=== PATIENT | male | born 1980 | race Caucasian/White ===

== ENCOUNTER 2016-11-23 13:03 | Inpatient (IN) | payer OTHER ==
[~2016-11-23] VITALS: Ht 185.4 cm; Wt 73.6 kg
[2016-11-23 15:02] LABS: HEMATOCRIT 41.5 % (38.0-50.0); MCH 30.4 PG (29.0-34.0); MCHC 35.9 G/DL (30.0-36.0); MCV 84.7 FL (86-99); MEAN PLAT.VOLUME 8.8 uM^3 (9.0-12.4); PLATELET COUNT 217 K/uL (156-360); RBC DIS.WIDTH-CV 11.8 % (11.8-14.6); RBC DIS.WIDTH-SD 35.8 % (39-53); WHITE BLOOD COUNT 22.9 K/uL (4.1-10.2)
[2016-11-23 15:10] LABS: CHLORIDE 91 mEq/L (99-109); POTASSIUM 4.3 mEq/L (3.7-5.4); SODIUM 131 mEq/L (136-147)
[2016-11-23 15:12] LABS: GLUCOSE 164 mg/dL (70-99)
[2016-11-23 15:13] LABS: ANION GAP 16 MEQ/L (2-14)
[2016-11-23 15:14] LABS: TOTAL BILIRUBIN 1.5 mg/dL (0.0-1.0)
[2016-11-23 15:16] LABS: ALKALINE PHOSPHATASE 63 IU/L (3-129); GFR ESTIMATE (CALCULATED) > 59 mL/min/
[2016-11-23 15:17] LABS: UREA NITROGEN (BUN) 28 mg/dL (9-23)
[2016-11-23 15:48] LABS: LIPASE 454 U/L (1.0-51.0)
[2016-11-23 17:03] LABS: ADD MIUA? YES; BILIRUBIN NEGATIVE; BLOOD SMALL; COLOR YELLOW ((YELLOW)); GLUCOSE (STRIP) 50; KETONES NEGATIVE; LEUKOCYTES NEGATIVE; NITRITE NEGATIVE; PROTEIN (STRIP) 100; SPECIFIC GRAVITY 1.038 (1.000-1.030); UROBILINOGEN 0.2 MG/DL (0.2-1.0)
[2016-11-23 17:06] LABS: BACTERIA NONE SEEN /HPF; EPITHELIAL CELLS NONE SEEN /HPF; MUCUS NONE SEEN /LPF; RED BLOOD CELLS 0-5 /HPF (0-5); UCUL ADDED? NO; WHITE BLOOD CELLS 0-5 /HPF (0-5)
[2016-11-23] MEDS ORDERED: BENADRYL50 MG PO (20:55)
[2016-11-23 22:20] VITALS: BP 160/92
[2016-11-24 03:47] VITALS: BP 135/87
[2016-11-24 06:19] LABS: EOSINOPHIL (%) 0.1 % (0-5); HEMATOCRIT 33.8 % (38.0-50.0); IMMATURE GRANULOCYTE (%) 0.6 % (0.0-0.7); IMMATURE GRANULOCYTE COUNT 0.1 K/uL; INSTRUMENT ABS NEUTROPHIL CT 13.2 K/uL; LYMPHOCYTE COUNT 0.6 K/uL (1.0-2.8); MCH 29.8 PG (29.0-34.0); MCHC 33.7 G/DL (30.0-36.0); MCV 88.5 FL (86-99); MONOCYTE (%) 14.7 % (3-12); MONOCYTE COUNT 2.4 K/uL (0-0.8); NEUTROPHIL (%) 81.1 % (45-76); NEUTROPHIL COUNT 13.2 K/uL (1.8-6.4); PLATELET COUNT 189 K/uL (156-360); RBC DIS.WIDTH-CV 12.1 % (11.8-14.6); RBC DIS.WIDTH-SD 38.7 % (39-53); RED BLOOD COUNT 3.82 M/uL (4.00-5.50); WHITE BLOOD COUNT 16.3 K/uL (4.1-10.2)
[2016-11-24 06:34] LABS: ALKALINE PHOSPHATASE 42 IU/L (3-129); ANION GAP 7 MEQ/L (2-14); CHLORIDE 103 MEQ/L (99-109); POTASSIUM 4.1 MEQ/L (3.7-5.4); SAMPLE HEMOLYSIS CHECK 0; SAMPLE ICTERIC CHECK 0; SAMPLE LIPEMIA CHECK 0; SODIUM 135 MEQ/L (136-147); UREA NITROGEN (BUN) 13 mg/dL (9-23)
[2016-11-24 06:54] LABS: GFR ESTIMATE (CALCULATED) > 59 mL/min/; GLUCOSE 104 mg/dL (70-99)
[2016-11-24 07:43] VITALS: BP 150/92
[2016-11-24 11:30] VITALS: BP 145/97
[2016-11-24 15:45] VITALS: BP 147/89
[2016-11-24 19:37] VITALS: BP 141/82
[2016-11-24 23:42] VITALS: BP 151/77
[2016-11-25 04:50] VITALS: BP 132/69
[2016-11-25 07:32] VITALS: BP 130/82
[2016-11-25 11:45] VITALS: BP 148/88
[2016-11-25 15:25] VITALS: BP 149/76
[2016-11-25 19:40] VITALS: BP 138/80
[2016-11-25 23:48] VITALS: BP 148/80
[2016-11-26 08:04] VITALS: BP 144/80
[2016-11-26 11:23] VITALS: BP 153/92
[2016-11-26 12:39] LABS: HEMATOCRIT 32.5 % (38.0-50.0); MCH 29.9 PG (29.0-34.0); MCHC 34.2 G/DL (30.0-36.0); MCV 87.6 FL (86-99); MEAN PLAT.VOLUME 8.9 uM^3 (9.0-12.4); NRBC (%) 0.1 /100 WBC (0-0); PLATELET COUNT 276 K/uL (156-360); RBC DIS.WIDTH-CV 11.9 % (11.8-14.6); RBC DIS.WIDTH-SD 38.6 % (39-53); RED BLOOD COUNT 3.71 M/uL (4.00-5.50); WHITE BLOOD COUNT 18.1 K/uL (4.1-10.2)
[2016-11-26 12:42] LABS: ANION GAP 7 MEQ/L (2-14); CHLORIDE 102 MEQ/L (99-109); POTASSIUM 3.7 MEQ/L (3.7-5.4); SAMPLE HEMOLYSIS CHECK 0; SAMPLE ICTERIC CHECK 0; SAMPLE LIPEMIA CHECK 0; SODIUM 133 MEQ/L (136-147)
[2016-11-26 12:50] LABS: GFR ESTIMATE (CALCULATED) > 59 mL/min/; GLUCOSE 163 mg/dL (70-99); UREA NITROGEN (BUN) 5 mg/dL (9-23)
[2016-11-26 15:53] VITALS: BP 147/80
[2016-11-26 20:11] VITALS: BP 135/90
[2016-11-26 23:06] VITALS: BP 136/79
[2016-11-27 04:16] VITALS: BP 140/89
[2016-11-27 06:48] LABS: HEMATOCRIT 30.3 % (38.0-50.0); MCH 30.2 PG (29.0-34.0); MCHC 34.7 G/DL (30.0-36.0); MCV 87.1 FL (86-99); MEAN PLAT.VOLUME 9.1 uM^3 (9.0-12.4); NRBC (%) 0.1 /100 WBC (0-0); PLATELET COUNT 316 K/uL (156-360); RBC DIS.WIDTH-CV 12.2 % (11.8-14.6); RBC DIS.WIDTH-SD 39.3 % (39-53); RED BLOOD COUNT 3.48 M/uL (4.00-5.50); WHITE BLOOD COUNT 15.3 K/uL (4.1-10.2)
[2016-11-27 07:12] LABS: ANION GAP 7 MEQ/L (2-14); CHLORIDE 106 MEQ/L (99-109); GFR ESTIMATE (CALCULATED) > 59 mL/min/; GLUCOSE 129 mg/dL (70-99); POTASSIUM 3.4 MEQ/L (3.7-5.4); SAMPLE HEMOLYSIS CHECK 0; SAMPLE ICTERIC CHECK 0; SAMPLE LIPEMIA CHECK 0; SODIUM 139 MEQ/L (136-147); UREA NITROGEN (BUN) 3 mg/dL (9-23)
[2016-11-27 08:02] VITALS: BP 134/80
[2016-11-27 09:12] LABS: ERTH.SED.RATE 62 MM/HR (0-15)
[2016-11-27 15:42] LABS: LIPASE 111 U/L (1.0-51.0)
[2016-11-27 16:00] VITALS: BP 136/82
[2016-11-27 19:45] VITALS: BP 138/82
[2016-11-28] VITALS: BP 128/81
[2016-11-28 03:11] VITALS: BP 135/79
[2016-11-28 06:09] LABS: HEMATOCRIT 30.9 % (38.0-50.0); MCH 28.9 PG (29.0-34.0); MCHC 33.3 G/DL (30.0-36.0); MCV 86.6 FL (86-99); MEAN PLAT.VOLUME 8.9 uM^3 (9.0-12.4); PLATELET COUNT 374 K/uL (156-360); RBC DIS.WIDTH-CV 12.3 % (11.8-14.6); RBC DIS.WIDTH-SD 39.3 % (39-53); RED BLOOD COUNT 3.57 M/uL (4.00-5.50); WHITE BLOOD COUNT 15.4 K/uL (4.1-10.2)
[2016-11-28 11:23] VITALS: BP 156/87
[2016-11-28 12:19] LABS: ALKALINE PHOSPHATASE 53 IU/L (3-129); ANION GAP 8 MEQ/L (2-14); CHLORIDE 99 MEQ/L (99-109); GFR ESTIMATE (CALCULATED) > 59 mL/min/; GLUCOSE 118 mg/dL (70-99); MAGNESIUM 1.7 mg/dl (1.3-2.7); POTASSIUM 3.6 MEQ/L (3.7-5.4); SAMPLE HEMOLYSIS CHECK 1; SAMPLE ICTERIC CHECK 0; SAMPLE LIPEMIA CHECK 0; SODIUM 137 MEQ/L (136-147); TOTAL BILIRUBIN 0.4 MG/DL (0.0-1.0); UREA NITROGEN (BUN) 3 mg/dL (9-23)
[2016-11-28] MEDS ORDERED: DICYCLOMINE HCL10 MG PO (13:52)
[2016-11-28] MEDS ORDERED: LEVOFLOXACIN750 MG PO (13:52)
[2016-11-28] MEDS ORDERED: ENDOCET 5-3251 EACH PO (13:53)
== END 2016-11-28 15:51 | disposition home or self-care (01) | DRG 439 ==
LOC: EME 13:03 → 5SOUTH 20:48 → EDOF 20:48 → ENRESERV 20:56 → 5SOUTH 22:03
PROVIDERS: Hospitalist; Internal Medicine Gastroenterology; Nurse Practitioner Adult Health
DX: K85.20 Alcohol induced acute pancreatitis without necrosis or infection (principal); K58.9 Irritable bowel syndrome, unspecified; F10.20 Alcohol dependence, uncomplicated; J90 Pleural effusion, not elsewhere classified; K20.9 Esophagitis, unspecified
CPT/HCPCS: 71010; 74000; 74177; 80048; 80053; 81003; 83516 90; 83690; 83735; 84443; 85025; 85027; 85651; 99281; 99285; C9113; J1170; J1650; J2270; J2405; J3010; J3411; J7030; J7120